=== PATIENT | male | born 1950 | race Caucasian/White ===

== ENCOUNTER 2017-09-20 11:38 | Observation (INO) | payer MEDICARE, OTHER ==
[~2017-09-20] VITALS: Ht 188 cm; Wt 140.6 kg
[2017-09-20] MEDS ORDERED: ASPirin 81 mg TAB PO ONE (12:00)
[2017-09-20 12:31] LABS: Basophils # (auto) 0.1 uL; Basophils % (auto) 0.8 % (0.0-2.0); Eosinophils # (auto) 0.2 uL; Eosinophils % (auto) 3.5 % (0.0-7.0); Hematocrit 42.4 % (41.0-53.0); Hemoglobin 14.9 g/dL (13.5-17.5); Lymphocytes % (auto) 13.9 % (10.0-50.0); Mean Corpuscular Hemoglobin 31.8 pg (28.0-32.0); Mean Corpuscular Hgb Conc. 35.1 g/dL (32.0-36.0); Mean Corpuscular Volume 90.4 fL (80.0-100.0); Monocytes # (auto) 0.3 uL; Monocytes % (auto) 4.7 % (0.0-12.0); Neutrophils # (auto) 5.5 uL; Neutrophils % (auto) 77.1 % (37.0-80.0); Nucleated Red Blood Cells % 0.1 %; Platelet Count (auto) 211 10^3/uL (140-450); Red Blood Cells 4.69 10^6/uL (4.5-5.90); Red Cell Distribution Width 13.6 % (11.8-14.3); White Blood Cell 7.1 10^3/uL (4.4-10.8)
[2017-09-20 12:48] LABS: INR 0.98 (0.9-1.15); Partial Thromboplastin Time 24.7 sec (22.64-33.71); Prothrombin Time 10.7 sec (9.37-12.3)
[2017-09-20 12:56] LABS: Alanine Aminotransferase 39 U/L (16-61); Albumin 3.9 g/dL (3.4-5.0); Alkaline Phosphatase 81 U/L (45-117); Anion Gap 9 (5-15); Aspartate Aminotransferase 25 U/L (15-37); BUN/Creatinine Ratio 8.8; Bilirubin, Total 0.7 mg/dL (0.2-1.0); Blood Urea Nitrogen 8 mg/dL (7-18); Calcium 8.9 mg/dL (8.5-10.1); Carbon Dioxide 26 mmol/L (21-32); Chloride 99 mmol/L (98-107); GFR African American 108 mL/min; GFR Non-African American 89 mL/min; Glucose 221 mg/dL (74-106); Magnesium 2.3 mg/dL (1.6-2.6); Potassium 3.4 mmol/L (3.5-5.1); Sodium 134 mmol/L (136-145); Total Protein 7.6 g/dL (6.4-8.2)
[2017-09-20 15:40] VITALS: BP 131/87
== END 2017-09-20 16:34 | disposition left against medical advice (07) | DRG 311 ==
LOC: ER 11:38 → OVERFLOW 11:57 → ER 16:34
PROVIDERS: ADMIT Family Medicine; ATTEND Family Medicine
DX: I20.0 Unstable angina (principal); E11.9 Type 2 diabetes mellitus without complications; I10 Essential (primary) hypertension; Z82.49 Family history of ischemic heart disease and other diseases of the circulatory system; E78.5 Hyperlipidemia, unspecified
CPT/HCPCS: 36415; 71045; 80053; 83735; 84443; 84484; 85025; 85379; 85610; 85730; 93005; 99285; G0378

== ENCOUNTER 2024-03-20 04:31 | Inpatient (IN) | payer MEDICARE, OTHER ==
[~2024-03-20] VITALS: Ht 182.9 cm; Wt 106.7 kg
[2024-03-20] VITALS (35 sets, daily range): BP systolic 84–139; BP diastolic 52–105; PULSE 88–130; RESP 19–31; TEMP 97.6–98.3; O2SAT 92–99
[2024-03-20] MEDS: ALBUTEROL SULF 2.5 MG/0.5ML(0.5%) NEB SOLN NEB ONE ×2 (04:56→14:31)
[2024-03-20] MEDS: IPRATROPIUM BROM 0.5 MG/2.5ML INH SOL NEB ONE (04:56)
[2024-03-20] MEDS: methylPREDNISolone SOD SUCC 125 MG/2 ML VL IV ONE (05:03)
[2024-03-20] MEDS: PIPERACILLIN-TAZOB 3.375GM 100 ML IV ONE (05:04)
[2024-03-20] MEDS: MAGNESIUM SULFATE 1GM/100ML 100 ML IV ONE (05:14)
[2024-03-20] MEDS: AZITHROMYCIN 500MG/ 250ML 250 ML IV ONE (05:56)
[2024-03-20 05:58] LABS: Base Excess -2.2 mmol/L (-2.0-3.0)
[2024-03-20 06:36] LABS: Hematocrit 38.7 % (41.0-53.0); Hemoglobin 13.4 g/dL (13.5-17.5); Mean Corpuscular Hemoglobin 33.2 pg (28.0-32.0); Mean Corpuscular Hgb Conc. 34.7 g/dL (32.0-36.0); Mean Corpuscular Volume 95.5 fL (80.0-100.0); Platelet Count (auto) 179 10^3/uL (140-450); Red Blood Cells 4.05 10^6/uL (4.5-5.90); Red Cell Distribution Width 14.4 % (11.8-14.3); White Blood Cell 6.3 10^3/uL (4.4-10.8)
[2024-03-20 06:47] LABS: Basophils % (manual) 0 (0.0-2.0); Blast Cells 0; Chloride 93 mmol/L (98-107); Eosinophils % (manual) 0 (0-7); Myelocytes % 0; Potassium 4.2 mmol/L (3.5-5.1); Promyelocytes % 0; Reactive Lymphocytes 0; Sodium 129 mmol/L (136-145)
[2024-03-20 06:48] LABS: Anion Gap 9 (5-15); Calcium 9.1 mg/dL (8.7-10.4); Carbon Dioxide 27 mmol/L (20-31)
[2024-03-20 06:53] LABS: BUN/Creatinine Ratio 27.4 (10.0-20.0); Blood Urea Nitrogen 29 mg/dL (9-23); Glucose 347 mg/dL (74-106)
[2024-03-20 07:29] LABS: Band Neutrophils % (manual) 43; Lymphocytes % (manual) 5 (10.0-50.0); Metamyelocytes % 1; Monocytes % (manual) 2 (0-12); Platelet Estimate Adequate
[2024-03-20] MEDS: NOREPINEPHRINE 8 MG/250ML KIT 250 ML IV SCH ×2 (10:45→11:00)
[2024-03-20] MEDS ORDERED: SODIUM CHLORIDE 0.9% 1,000 ML IV SCH (11:00)
[2024-03-20] MEDS ORDERED: DEXTROSE (50%) 50ML SYRG IV PRN ×2 (11:00→11:15)
[2024-03-20] MEDS ORDERED: GABA-1251 PO (11:08)
[2024-03-20] MEDS ORDERED: IPRATROPIUM BROM 0.5 MG/2.5ML INH SOL NEB PRN (11:15)
[2024-03-20] MEDS ORDERED: ALBUTEROL SULF 2.5 MG/0.5ML(0.5%) NEB SOLN NEB PRN ×2 (11:15→14:45)
[2024-03-20] MEDS ORDERED: ACCU-CHEK COMFORT CURVE STRIP VI SCH (11:30)
[2024-03-20] MEDS: PANTOPRAZOLE 40 MG/10 ML VIAL INJ IV ONE (11:30)
[2024-03-20] MEDS ORDERED: InsuLIN REG 1unit/0.01ml Soln (100units/ml) SC SCH (11:30)
[2024-03-20 11:34] LABS: Triglycerides 62 mg/dL (< 150)
[2024-03-20 11:35] LABS: LDL Cholesterol 16 mg/dL (< 100)
[2024-03-20 11:36] LABS: Cholesterol 97 mg/dL (< 200); HDL Cholesterol 61 mg/dL (40-59)
[2024-03-20] MEDS ORDERED: IPRATROPIUM BROM 0.5 MG/2.5ML INH SOL NEB SCH (12:00)
[2024-03-20] MEDS ORDERED: ALBUTEROL SULF 2.5 MG/0.5ML(0.5%) NEB SOLN NEB SCH (12:00)
[2024-03-20] MEDS: IOHEXOL 350 MG/ML 100ML IJ ONE (12:36)
[2024-03-20 13:32] LABS: Urine Bacteria None Seen /hpf (None Seen)
[2024-03-20 13:40] LABS: Urine Blood Negative /uL (Negative); Urine Budding Yeast OCCASIONAL /hpf (None Seen); Urine Clarity Turbid (Clear); Urine Color Yellow (Yellow); Urine Mucus FEW (None Seen); Urine Protein, UAD 1+ (Negative); Urine Specific Gravity 1.042 (1.001-1.035); Urine Urobilinogen 2 mg/dL (Negative); Urine WBC 7 /hpf (0 - 3); Urine pH 5.5 (5.0-9.0)
[2024-03-20] MEDS: SODIUM CHLORIDE 0.9% 1,000 ML IV SCH (13:51)
[2024-03-20 14:32] LABS: COVID19 ANTIGEN SOFIA FIA NEGATIVE (NEGATIVE); Rapid Influenza A Negative (Negative); Rapid Influenza B Negative (Negative)
[2024-03-20 17:05] LABS: Base Excess -1.5 mmol/L (-2.0-3.0)
[2024-03-20] MEDS: InsuLIN REG 1unit/0.01ml Soln (100units/ml) SC SCH (17:11)
[2024-03-20] MEDS: ACCU-CHEK COMFORT CURVE STRIP VI SCH (17:11)
[2024-03-20] MEDS: IPRATROPIUM BROM 0.5 MG/2.5ML INH SOL NEB SCH (18:37)
[2024-03-20] MEDS: ALBUTEROL SULF 2.5 MG/0.5ML(0.5%) NEB SOLN NEB SCH (18:38)
[2024-03-20] MEDS: methylPREDNISolone SOD SUCC 125 MG/2 ML VL IV SCH (22:09)
[2024-03-21] VITALS (116 sets, daily range): BP systolic 100–166; BP diastolic 57–123; PULSE 81–119; RESP 8–26; TEMP 97.5–99; O2SAT 92–99
[2024-03-21 04:47] LABS: Basophils # (auto) 0 10 ^3/uL (0-0.2); Basophils % (auto) 0.4 % (0.0-2.0); Eosinophils # (auto) 0 10 ^3/uL (0-0.8); Hemoglobin 11.7 g/dL (13.5-17.5); Lymphocytes # (auto) 0.1 10 ^3/uL (0.4-5.4); Lymphocytes % (auto) 0.9 % (10.0-50.0); Mean Corpuscular Hemoglobin 33.5 pg (28.0-32.0); Mean Corpuscular Hgb Conc. 35.5 g/dL (32.0-36.0); Mean Corpuscular Volume 94.5 fL (80.0-100.0); Monocytes # (auto) 0.1 10 ^3/uL (0-1.3); Monocytes % (auto) 1.3 % (0.0-12.0); Neutrophils # (auto) 6.7 10 ^3/uL (1.6-8.6); Neutrophils % (auto) 97.4 % (37.0-80.0); Platelet Count (auto) 135 10^3/uL (140-450); Red Blood Cells 3.49 10^6/uL (4.5-5.90); Red Cell Distribution Width 15.1 % (11.8-14.3); White Blood Cell 6.8 10^3/uL (4.4-10.8)
[2024-03-21 04:59] LABS: Alanine Aminotransferase 53 U/L (7-40); Albumin 3.4 g/dL (3.2-4.8); Alkaline Phosphatase 61 U/L (46-116); Anion Gap 6 (5-15); Aspartate Aminotransferase 39 U/L (13-40); BUN/Creatinine Ratio 45.5 (10.0-20.0); Blood Urea Nitrogen 35 mg/dL (9-23); Calcium 9.6 mg/dL (8.7-10.4); Carbon Dioxide 28 mmol/L (20-31); Chloride 98 mmol/L (98-107); Potassium 4.1 mmol/L (3.5-5.1); Sodium 132 mmol/L (136-145)
[2024-03-21 05:00] LABS: Bilirubin, Total 0.8 mg/dL (0.2-1.0); Total Protein 5.4 g/dL (5.7-8.2)
[2024-03-21 05:05] LABS: Glucose 159 mg/dL (74-106)
[2024-03-21] MEDS: PANTOPRAZOLE 40 MG/10 ML VIAL INJ IV SCH (09:52)
[2024-03-21] MEDS: ENOXAPARIN SOD 40 MG/0.4 ML SYRINGE SC SCH (09:54)
[2024-03-21] MEDS ORDERED: ENOXAPARIN SOD 40 MG/0.4 ML SYRINGE SC SCH (10:00)
[2024-03-21] MEDS ORDERED: VANCOMYCIN PER PHARMACY 0 MG IV SCH (10:45)
[2024-03-21] MEDS ORDERED: ARTISOL13 EACHEYE (13:34)
[2024-03-21] MEDS ORDERED: RIS1T PO (13:34)
[2024-03-21] MEDS ORDERED: RISP2TAB62 PO (13:34)
[2024-03-21] MEDS ORDERED: DICL0.1S20 OP (13:34)
[2024-03-21] MEDS ORDERED: CARB0.5D8 LEFTEYE (13:34)
[2024-03-21] MEDS ORDERED: METF-370 PO (13:34)
[2024-03-21] MEDS ORDERED: FAMO20TA10 GT (13:34)
[2024-03-21] MEDS ORDERED: AMLO1TAB22 PO (13:34)
[2024-03-21] MEDS ORDERED: [UNRECOGNIZED DRUG - CODE] OR (13:34)
[2024-03-21] MEDS ORDERED: ATOR40TA52 PEG (13:34)
[2024-03-21] MEDS ORDERED: LEVO75TA6 PO (13:34)
[2024-03-21] MEDS ORDERED: TRAZ-227 PO (13:34)
[2024-03-21] MEDS: VANCOMYCIN 1GM/200ML PREMIX 250 ML IV SCH (14:05)
[2024-03-21] MEDS ORDERED: Glucerna 1.2 Cal 1Liter BOTTLE GT SCH (16:15)
[2024-03-21] MEDS: SODIUM CHLORIDE 0.9% 1,000 ML IV SCH (16:38)
[2024-03-21] MEDS: PIPERACILLIN-TAZOB 3.375GM 100 ML IV SCH (16:42)
[2024-03-22] VITALS (95 sets, daily range): BP systolic 107–166; BP diastolic 60–84; PULSE 21–139; RESP 15–31; TEMP 98.3–99; O2SAT 90–100
[2024-03-22] MEDS: traZODone HCL 50 MG TAB PO SCH (00:53)
[2024-03-22 04:26] LABS: Hematocrit 34.3 % (41.0-53.0); Hemoglobin 11.9 g/dL (13.5-17.5); Mean Corpuscular Hemoglobin 32.6 pg (28.0-32.0); Mean Corpuscular Hgb Conc. 34.7 g/dL (32.0-36.0); Mean Corpuscular Volume 93.9 fL (80.0-100.0); Platelet Count (auto) 107 10^3/uL (140-450); Red Blood Cells 3.65 10^6/uL (4.5-5.90); Red Cell Distribution Width 15.1 % (11.8-14.3); White Blood Cell 7.9 10^3/uL (4.4-10.8)
[2024-03-22 04:29] LABS: Basophils % (manual) 0 (0.0-2.0); Blast Cells 0; Eosinophils % (manual) 0 (0-7); Metamyelocytes % 0; Myelocytes % 0; Promyelocytes % 0; Reactive Lymphocytes 0
[2024-03-22 04:44] LABS: Alanine Aminotransferase 43 U/L (7-40); Albumin 3.2 g/dL (3.2-4.8); Alkaline Phosphatase 70 U/L (46-116); Anion Gap 6 (5-15); Aspartate Aminotransferase 37 U/L (13-40); BUN/Creatinine Ratio 42.9 (10.0-20.0); Bilirubin, Total 0.9 mg/dL (0.2-1.0); Calcium 9.7 mg/dL (8.7-10.4); Carbon Dioxide 26 mmol/L (20-31); Chloride 101 mmol/L (98-107); Glucose 176 mg/dL (74-106); Magnesium 2.3 mg/dL (1.6-2.6); Phosphorus 2.2 mg/dL (2.4-5.1); Potassium 3.9 mmol/L (3.5-5.1); Sodium 133 mmol/L (136-145); Total Protein 5.6 g/dL (5.7-8.2)
[2024-03-22 04:56] LABS: Blood Urea Nitrogen 24 mg/dL (9-23)
[2024-03-22 05:24] LABS: Band Neutrophils % (manual) 34; Lymphocytes % (manual) 2 (10.0-50.0); Monocytes % (manual) 12 (0-12)
[2024-03-22 05:25] LABS: Large Platelets FEW; Ovalocytes FEW; Platelet Estimate Decrea
[2024-03-22] MEDS: VANCOMYCIN 1.5GM/300ML 300 ML IV SCH (13:09)
[2024-03-22] MEDS: SENNA 8.6 MG TAB PO ONE (18:10)
[2024-03-22] MEDS: LACTULOSE 20Gm/30ML SOLN PO ONE (18:10)
[2024-03-22] MEDS: NYSTATIN TOPICAL POWDER 15GM TOP SCH (22:18)
[2024-03-23] VITALS (118 sets, daily range): BP systolic 101–179; BP diastolic 50–129; PULSE 88–133; RESP 19–38; TEMP 97.9–100.2; O2SAT 89–100
[2024-03-23] MEDS: Glucerna 1.2 Cal 1Liter BOTTLE GT SCH (00:53)
[2024-03-23 04:13] LABS: Basophils # (auto) 0 10 ^3/uL (0-0.2); Basophils % (auto) 0.3 % (0.0-2.0); Eosinophils # (auto) 0 10 ^3/uL (0-0.8); Eosinophils % (auto) 0.2 % (0.0-7.0); Hemoglobin 12.3 g/dL (13.5-17.5); Lymphocytes # (auto) 0.1 10 ^3/uL (0.4-5.4); Lymphocytes % (auto) 0.9 % (10.0-50.0); Mean Corpuscular Hemoglobin 33.2 pg (28.0-32.0); Mean Corpuscular Hgb Conc. 35.1 g/dL (32.0-36.0); Mean Corpuscular Volume 94.7 fL (80.0-100.0); Monocytes # (auto) 0 10 ^3/uL (0-1.3); Monocytes % (auto) 0.6 % (0.0-12.0); Neutrophils # (auto) 6.4 10 ^3/uL (1.6-8.6); Nucleated Red Blood Cells % 0.1 %; Platelet Count (auto) 119 10^3/uL (140-450); Red Blood Cells 3.69 10^6/uL (4.5-5.90); Red Cell Distribution Width 15.3 % (11.8-14.3); White Blood Cell 6.5 10^3/uL (4.4-10.8)
[2024-03-23 04:30] LABS: Alanine Aminotransferase 43 U/L (7-40); Albumin 3.5 g/dL (3.2-4.8); Alkaline Phosphatase 78 U/L (46-116); Anion Gap 10 (5-15); Aspartate Aminotransferase 36 U/L (13-40); Blood Urea Nitrogen 27 mg/dL (9-23); Calcium 10.6 mg/dL (8.7-10.4); Carbon Dioxide 25 mmol/L (20-31); Chloride 103 mmol/L (98-107); Glucose 180 mg/dL (74-106); Magnesium 2.1 mg/dL (1.6-2.6); Potassium 3.5 mmol/L (3.5-5.1); Sodium 138 mmol/L (136-145)
[2024-03-23 04:31] LABS: Bilirubin, Total 0.8 mg/dL (0.2-1.0); Total Protein 5.8 g/dL (5.7-8.2)
[2024-03-23] MEDS: POTASSIUM CHL 20MEQ/100ML 100 ML IV ONE (05:44)
[2024-03-23] MEDS: LACTULOSE 20Gm/30ML SOLN PO SCH (09:29)
[2024-03-23] MEDS: METOPROLOL TARTRATE 25 MG TAB PO SCH (10:03)
[2024-03-23] MEDS: MICAFUNGIN SODIUM 100 MG in SODIUM CHL 0.9% 100 ML IV ONE (13:29)
[2024-03-23] MEDS: LABETALOL HCL 20 MG/4 ML VL IV PRN (14:53)
[2024-03-23] MEDS: ENOXAPARIN SOD 100 MG/1 ML SYRINGE SC SCH (23:31)
[2024-03-24] VITALS (95 sets, daily range): BP systolic 104–186; BP diastolic 50–98; PULSE 93–122; RESP 18–39; TEMP 98.4–100.6; O2SAT 90–100
[2024-03-24 05:18] LABS: Hemoglobin 12.8 g/dL (13.5-17.5); Mean Corpuscular Hemoglobin 32.9 pg (28.0-32.0); Mean Corpuscular Hgb Conc. 34.6 g/dL (32.0-36.0); Mean Corpuscular Volume 95.1 fL (80.0-100.0); Platelet Count (auto) 127 10^3/uL (140-450); Red Blood Cells 3.89 10^6/uL (4.5-5.90); Red Cell Distribution Width 15.6 % (11.8-14.3); White Blood Cell 6.5 10^3/uL (4.4-10.8)
[2024-03-24 05:31] LABS: Alanine Aminotransferase 35 U/L (7-40); Albumin 3.6 g/dL (3.2-4.8); Alkaline Phosphatase 77 U/L (46-116); Anion Gap 11 (5-15); Aspartate Aminotransferase 23 U/L (13-40); Bilirubin, Total 0.8 mg/dL (0.2-1.0); Blood Urea Nitrogen 28 mg/dL (9-23); Calcium 10.3 mg/dL (8.7-10.4); Carbon Dioxide 25 mmol/L (20-31); Chloride 107 mmol/L (98-107); Glucose 176 mg/dL (74-106); Sodium 143 mmol/L (136-145); Total Protein 5.9 g/dL (5.7-8.2)
[2024-03-24 05:38] LABS: Basophils % (manual) 0 (0.0-2.0); Blast Cells 0; Eosinophils % (manual) 0 (0-7); Metamyelocytes % 0; Myelocytes % 0; Promyelocytes % 0; Reactive Lymphocytes 0
[2024-03-24 06:10] LABS: Lactic Acid w/Reflex 2.2 mmol/L (0.4-2.0)
[2024-03-24 06:21] LABS: Band Neutrophils % (manual) 23; Lymphocytes % (manual) 3 (10.0-50.0); Monocytes % (manual) 3 (0-12); Platelet Estimate Decreased; Smudge Cells 1 /100 WBC
[2024-03-24 06:48] LABS: Base Excess -0.3 mmol/L (-2.0-3.0)
[2024-03-24] MEDS: POTASSIUM CHL 20MEQ/100ML 100 ML IV SCH (07:26)
[2024-03-24] MEDS: MICAFUNGIN SODIUM 100 MG in SODIUM CHL 0.9% 100 ML IV SCH (10:20)
[2024-03-24] MEDS ORDERED: LEVALBUTEROL HCL 1.25 MG/3 ML NEB NEB SCH ×2 (12:00→14:00)
[2024-03-24] MEDS: VORICONAZOLE IV SCH (15:17)
[2024-03-24] MEDS: D5W 5% IV SCH (15:17)
[2024-03-24] MEDS: VANCOMYCIN 1GM/200ML PREMIX IV SCH (15:25)
[2024-03-24] MEDS: MEROPENEM 1GM IVPB 50 ML IV ONE (15:42)
[2024-03-24] MEDS: LEVALBUTEROL HCL 1.25 MG/3 ML NEB NEB SCH (18:18)
[2024-03-24] MEDS: MEROPENEM 1GM IVPB 50 ML IV SCH (22:08)
[2024-03-24] MEDS: ACETAMINOPHEN 325 MG TAB PO PRN (22:37)
[2024-03-25] VITALS (57 sets, daily range): BP systolic 27–180; BP diastolic 10–99; PULSE 82–118; RESP 11–32; TEMP 97.4–101.1; O2SAT 68–100
[2024-03-25 05:13] LABS: Basophils # (auto) 0 10 ^3/uL (0-0.2); Basophils % (auto) 0.3 % (0.0-2.0); Eosinophils # (auto) 0 10 ^3/uL (0-0.8); Eosinophils % (auto) 0.1 % (0.0-7.0); Hematocrit 35.9 % (41.0-53.0); Hemoglobin 12.4 g/dL (13.5-17.5); Lymphocytes # (auto) 0.1 10 ^3/uL (0.4-5.4); Lymphocytes % (auto) 0.9 % (10.0-50.0); Mean Corpuscular Hgb Conc. 34.4 g/dL (32.0-36.0); Monocytes # (auto) 0.1 10 ^3/uL (0-1.3); Monocytes % (auto) 0.7 % (0.0-12.0); Neutrophils # (auto) 8.6 10 ^3/uL (1.6-8.6); Platelet Count (auto) 116 10^3/uL (140-450); Red Blood Cells 3.74 10^6/uL (4.5-5.90); Red Cell Distribution Width 16.5 % (11.8-14.3); White Blood Cell 8.7 10^3/uL (4.4-10.8)
[2024-03-25 05:35] LABS: Alanine Aminotransferase 25 U/L (7-40); Albumin 3.2 g/dL (3.2-4.8); Alkaline Phosphatase 77 U/L (46-116); Anion Gap 9 (5-15); Aspartate Aminotransferase 16 U/L (13-40); BUN/Creatinine Ratio 44.2 (10.0-20.0); Bilirubin, Total 0.4 mg/dL (0.2-1.0); Blood Urea Nitrogen 34 mg/dL (9-23); Calcium 9.8 mg/dL (8.7-10.4); Carbon Dioxide 27 mmol/L (20-31); Chloride 109 mmol/L (98-107); GFR African American 128 mL/min; GFR Non-African American 106 mL/min; Glucose 238 mg/dL (74-106); Magnesium 2.1 mg/dL (1.6-2.6); Phosphorus 3.1 mg/dL (2.4-5.1); Potassium 3.2 mmol/L (3.5-5.1); Sodium 145 mmol/L (136-145); Total Protein 5.5 g/dL (5.7-8.2)
[2024-03-25] MEDS: POTASSIUM CHL 20MEQ/100ML 100 ML IV SCH (08:56)
[2024-03-25 09:05] LABS: Lactic Acid w/Reflex 2.2 mmol/L (0.4-2.0)
[2024-03-25] MEDS: LOSARTAN POTASSIUM 50 MG TAB PO SCH (09:38)
[2024-03-25 11:28] LABS: INR 1.12 (0.9-1.15); Partial Thromboplastin Time 34.2 SEC (24.5-34.5); Prothrombin Time 11.8 sec (9.3-11.8)
[2024-03-25] MEDS ORDERED: ARTIFICIAL TEARS 15ml EACHEYE PRN (13:15)
[2024-03-25] MEDS: amLODIPine BESYLATE 5 MG TAB PO ONE (13:16)
[2024-03-25] MEDS: LORazepam 0.5 MG TAB GT PRN (13:16)
[2024-03-25] MEDS: VORICONAZOLE INJ 300 MG in D5W 5% 250 ML IV SCH (15:00)
[2024-03-25] MEDS: IOHEXOL 300 MG/ML 100ML BOTTLE IJ ONE (15:34)
[2024-03-25] MEDS: ARTIFICIAL TEARS 15ml EACHEYE SCH (18:00)
[2024-03-25] MEDS: ETOMIDATE (2MG/ML) 20ML VIAL IV ONE ×2 (18:20→19:23)
[2024-03-25] MEDS: fentaNYL Drip 2500mCg/250mlNS 250 ML IV ONE (18:20)
[2024-03-25] MEDS: SUCCINYLCHOLINE CHLORIDE 20 MG/ML 10ML VIAL IV ONE (18:21)
[2024-03-25] MEDS: ROCURONIUM 10MG/ML 10ML VIAL IV ONE ×2 (18:21→19:24)
[2024-03-25] MEDS: NOREPINEPHRINE 8 MG/250ML KIT 250 ML IV ONE (18:22)
[2024-03-25] MEDS: PROPOFOL 100 ML IV ONE (18:23)
[2024-03-25] MEDS: NOREPINEPHRINE 8 MG/250ML KIT 250 ML IV SCH (18:30)
[2024-03-25] MEDS: VASOPRESSIN 20 UNIT/ML ONE ×2 (18:39→18:41)
[2024-03-25] MEDS: VASOPRESSIN 20 UNITS in SODIUM CHL 0.9% 99 ML IV SCH ×2 (18:45→19:15)
[2024-03-25] MEDS: PROPOFOL 100 ML IV SCH (19:29)
[2024-03-25] MEDS: fentaNYL Drip 2500mCg/250mlNS 250 ML IV SCH (19:29)
[2024-03-25] MEDS: FUROSEMIDE 20 MG/2 ML VIAL IV ONE (21:05)
[2024-03-25 21:59] LABS: Base Excess -6.2 mmol/L (-2.0-3.0)
[2024-03-26] VITALS (118 sets, daily range): BP systolic 81–143; BP diastolic 43–100; PULSE 90–118; RESP 9–30; TEMP 99.1–100.4; O2SAT 77–100
[2024-03-26 05:11] LABS: Hematocrit 37.5 % (41.0-53.0); Hemoglobin 12.4 g/dL (13.5-17.5); Mean Corpuscular Hemoglobin 33.1 pg (28.0-32.0); Mean Corpuscular Volume 100.2 fL (80.0-100.0); Platelet Count (auto) 149 10^3/uL (140-450); Red Blood Cells 3.74 10^6/uL (4.5-5.90); Red Cell Distribution Width 17.3 % (11.8-14.3); White Blood Cell 15.8 10^3/uL (4.4-10.8)
[2024-03-26 05:15] LABS: Basophils % (manual) 0 (0.0-2.0); Blast Cells 0; Metamyelocytes % 0; Myelocytes % 0; Promyelocytes % 0; Reactive Lymphocytes 0
[2024-03-26 05:29] LABS: Alanine Aminotransferase 21 U/L (7-40); Alkaline Phosphatase 78 U/L (46-116); Anion Gap 10 (5-15); Aspartate Aminotransferase 16 U/L (13-40); BUN/Creatinine Ratio 29.5 (10.0-20.0); Blood Urea Nitrogen 39 mg/dL (9-23); Calcium 9.8 mg/dL (8.7-10.4); Carbon Dioxide 27 mmol/L (20-31); Chloride 111 mmol/L (98-107); Glucose 150 mg/dL (74-106); Magnesium 2.2 mg/dL (1.6-2.6); Phosphorus 4.9 mg/dL (2.4-5.1); Potassium 4.1 mmol/L (3.5-5.1); Sodium 148 mmol/L (136-145)
[2024-03-26 05:30] LABS: Bilirubin, Total 0.2 mg/dL (0.2-1.0); Total Protein 5.3 g/dL (5.7-8.2)
[2024-03-26 06:14] LABS: Band Neutrophils % (manual) 22; Eosinophils % (manual) 1 (0-7); Lymphocytes % (manual) 4 (10.0-50.0); Monocytes % (manual) 3 (0-12); Platelet Estimate Adequate
[2024-03-26] MEDS: amLODIPine BESYLATE 5 MG TAB PO SCH (07:45)
[2024-03-26 07:46] LABS: Base Excess -5.7 mmol/L (-2.0-3.0)
[2024-03-26] MEDS: SODIUM CHLORIDE 0.9% 1,000 ML IV SCH (15:26)
[2024-03-26] MEDS: FLUCONAZOLE 200MG/100ML 100 ML IV SCH (18:56)
[2024-03-26] MEDS: MICAFUNGIN SODIUM 100 MG in SODIUM CHL 0.9% 100 ML IV SCH (20:13)
[2024-03-27] VITALS (109 sets, daily range): BP systolic 87–128; BP diastolic 43–69; PULSE 83–98; RESP 13–31; TEMP 99.5–100; O2SAT 92–100
[2024-03-27 05:25] LABS: Hematocrit 32.7 % (41.0-53.0); Hemoglobin 10.8 g/dL (13.5-17.5); Mean Corpuscular Hemoglobin 32.8 pg (28.0-32.0); Mean Corpuscular Hgb Conc. 33.1 g/dL (32.0-36.0); Mean Corpuscular Volume 98.9 fL (80.0-100.0); Platelet Count (auto) 127 10^3/uL (140-450); Red Cell Distribution Width 17.5 % (11.8-14.3); White Blood Cell 12.1 10^3/uL (4.4-10.8)
[2024-03-27 05:30] LABS: Basophils % (manual) 0 (0.0-2.0); Blast Cells 0; Eosinophils % (manual) 0 (0-7); Metamyelocytes % 0; Myelocytes % 0; Promyelocytes % 0; Reactive Lymphocytes 0
[2024-03-27 05:46] LABS: Alanine Aminotransferase 14 U/L (7-40); Alkaline Phosphatase 86 U/L (46-116); Anion Gap 8 (5-15); Aspartate Aminotransferase 13 U/L (13-40); Blood Urea Nitrogen 51 mg/dL (9-23); Carbon Dioxide 24 mmol/L (20-31); Chloride 114 mmol/L (98-107); Glucose 176 mg/dL (74-106); Magnesium 2.2 mg/dL (1.6-2.6); Potassium 4.2 mmol/L (3.5-5.1); Sodium 146 mmol/L (136-145)
[2024-03-27 05:47] LABS: Albumin 2.7 g/dL (3.2-4.8); Bilirubin, Total 0.2 mg/dL (0.2-1.0); Total Protein 5.1 g/dL (5.7-8.2)
[2024-03-27 06:19] LABS: Band Neutrophils % (manual) 8; Lymphocytes % (manual) 4 (10.0-50.0); Monocytes % (manual) 1 (0-12); Platelet Estimate Decreased
[2024-03-27] MEDS: MINERAL OIL OP SCH (07:24)
[2024-03-27] MEDS: [UNRECOGNIZED DRUG - OTHER] OP SCH (07:24)
[2024-03-27] MEDS: PETROLATUM OP SCH (07:24)
[2024-03-27] MEDS: SODIUM CHLORIDE 0.9% 500 ML IV ONE (10:15)
[2024-03-27] MEDS: FREE WATER GT SCH (10:15)
[2024-03-27] MEDS: MEROPENEM 1GM IVPB 50 ML IV SCH (16:38)
[2024-03-27] MEDS: FUROSEMIDE INJECTION 100 MG in D5W 5% 100 ML IV SCH (21:15)
[2024-03-28] VITALS (111 sets, daily range): BP systolic 91–137; BP diastolic 41–75; PULSE 84–110; RESP 18–26; TEMP 98.1–100.4; O2SAT 91–98
[2024-03-28 06:40] LABS: Basophils # (auto) 0 10 ^3/uL (0-0.2); Basophils % (auto) 0.3 % (0.0-2.0); Eosinophils # (auto) 0 10 ^3/uL (0-0.8); Eosinophils % (auto) 0.4 % (0.0-7.0); Hematocrit 31.6 % (41.0-53.0); Hemoglobin 10.6 g/dL (13.5-17.5); Lymphocytes # (auto) 0.1 10 ^3/uL (0.4-5.4); Lymphocytes % (auto) 1.4 % (10.0-50.0); Mean Corpuscular Hgb Conc. 33.4 g/dL (32.0-36.0); Mean Corpuscular Volume 98.7 fL (80.0-100.0); Monocytes # (auto) 0.1 10 ^3/uL (0-1.3); Neutrophils # (auto) 6.6 10 ^3/uL (1.6-8.6); Neutrophils % (auto) 96.9 % (37.0-80.0); Nucleated Red Blood Cells % 0.1 %; Platelet Count (auto) 106 10^3/uL (140-450); Red Blood Cells 3.21 10^6/uL (4.5-5.90); Red Cell Distribution Width 17.6 % (11.8-14.3); White Blood Cell 6.8 10^3/uL (4.4-10.8)
[2024-03-28 06:53] LABS: Alanine Aminotransferase 12 U/L (7-40); Albumin 2.6 g/dL (3.2-4.8); Alkaline Phosphatase 101 U/L (46-116); Anion Gap 7 (5-15); Aspartate Aminotransferase 18 U/L (13-40); BUN/Creatinine Ratio 36.9 (10.0-20.0); Blood Urea Nitrogen 55 mg/dL (9-23); Calcium 8.9 mg/dL (8.7-10.4); Carbon Dioxide 24 mmol/L (20-31); Chloride 115 mmol/L (98-107); Glucose 151 mg/dL (74-106); Magnesium 2.5 mg/dL (1.6-2.6); Potassium 4.2 mmol/L (3.5-5.1); Sodium 146 mmol/L (136-145)
[2024-03-28 06:54] LABS: Bilirubin, Total < 0.2 mg/dL (0.2-1.0); Total Protein 5.1 g/dL (5.7-8.2)
[2024-03-28 08:41] LABS: Base Excess -4.3 mmol/L (-2.0-3.0)
[2024-03-28] MEDS: SOD CHL 0.45% 1,000 ML IV SCH (11:30)
[2024-03-28] MEDS: MEROPENEM 1GM IVPB 50 ML IV SCH (12:29)
[2024-03-28 13:13] LABS: Protein, Urine 46.7 mg/dL (1-14)
[2024-03-28 13:16] LABS: Creatinine, Urine 19.44 mg/dL (30.0-125.0)
[2024-03-28] MEDS ORDERED: VANCOMYCIN PER PHARMACY 0 MG IV SCH (15:30)
[2024-03-28] MEDS: MIDAZOLAM DRIP 50 mg/50mL 50 ML IV SCH (16:26)
[2024-03-28] MEDS ORDERED: VANCOMYCIN 750mg/150ml 150 ML IV SCH (22:00)
[2024-03-29] VITALS (100 sets, daily range): BP systolic 92–134; BP diastolic 41–85; PULSE 81–101; RESP 13–26; TEMP 98.2–99.9; O2SAT 3–97
[2024-03-29 05:02] LABS: Hematocrit 30.1 % (41.0-53.0); Hemoglobin 10.1 g/dL (13.5-17.5); Mean Corpuscular Hgb Conc. 33.6 g/dL (32.0-36.0); Mean Corpuscular Volume 98.1 fL (80.0-100.0); Platelet Count (auto) 102 10^3/uL (140-450); Red Blood Cells 3.07 10^6/uL (4.5-5.90); Red Cell Distribution Width 17.7 % (11.8-14.3); White Blood Cell 4.9 10^3/uL (4.4-10.8)
[2024-03-29 05:15] LABS: Basophils % (manual) 0 (0.0-2.0); Blast Cells 0; Eosinophils % (manual) 0 (0-7); Metamyelocytes % 0; Promyelocytes % 0; Reactive Lymphocytes 0
[2024-03-29 05:16] LABS: Alanine Aminotransferase 10 U/L (7-40); Albumin 2.5 g/dL (3.2-4.8); Alkaline Phosphatase 84 U/L (46-116); Anion Gap 8 (5-15); Aspartate Aminotransferase 12 U/L (13-40); Blood Urea Nitrogen 59 mg/dL (9-23); Calcium 8.8 mg/dL (8.7-10.4); Carbon Dioxide 25 mmol/L (20-31); Chloride 112 mmol/L (98-107); Glucose 180 mg/dL (74-106); Potassium 4.1 mmol/L (3.5-5.1); Sodium 145 mmol/L (136-145)
[2024-03-29 05:17] LABS: Bilirubin, Total 0.2 mg/dL (0.2-1.0); Total Protein 5.2 g/dL (5.7-8.2)
[2024-03-29 06:52] LABS: Band Neutrophils % (manual) 17; Lymphocytes % (manual) 4 (10.0-50.0); Monocytes % (manual) 2 (0-12); Myelocytes % 1
[2024-03-29 06:54] LABS: Anisocytosis Slight; Platelet Estimate Decreased
[2024-03-29 06:56] LABS: Large Platelets FEW
[2024-03-29 07:40] LABS: Base Excess -7.2 mmol/L (-2.0-3.0)
[2024-03-29 11:16] LABS: Base Excess -5.7 mmol/L (-2.0-3.0)
[2024-03-29] MEDS: SOD CHL 0.45% 1,000 ML IV SCH (13:59)
[2024-03-29] MEDS ORDERED: BACTRIM 5MG/KG Q8HR PER RX 10 ML IV SCH (15:30)
[2024-03-29] MEDS ORDERED: levoFLOXacin 750MG 150 ML IV SCH (18:00)
[2024-03-29] MEDS: LACTULOSE 20Gm/30ML SOLN GT SCH (18:05)
[2024-03-29] MEDS: SULFAMETH-TRIMETH 80/16MG-ML 25 ML in D5W 5% 500 ML IV SCH (18:06)
[2024-03-29] MEDS: MICAFUNGIN SODIUM 100 MG in SODIUM CHL 0.9% 100 ML IV SCH (20:23)
[2024-03-29] MEDS: levoFLOXacin 500MG 100 ML IV SCH (20:23)
[2024-03-29] MEDS: levoFLOXacin 250MG 50 ML IV SCH (21:48)
[2024-03-30] VITALS (106 sets, daily range): BP systolic 93–155; BP diastolic 41–97; PULSE 82–118; RESP 12–28; TEMP 98.4–99.5; O2SAT 75–96
[2024-03-30 03:56] LABS: Hematocrit 31.4 % (41.0-53.0); Hemoglobin 10.5 g/dL (13.5-17.5); Mean Corpuscular Hgb Conc. 33.3 g/dL (32.0-36.0); Mean Corpuscular Volume 98.9 fL (80.0-100.0); Platelet Count (auto) 115 10^3/uL (140-450); Red Blood Cells 3.17 10^6/uL (4.5-5.90); Red Cell Distribution Width 17.6 % (11.8-14.3); White Blood Cell 4.2 10^3/uL (4.4-10.8)
[2024-03-30 04:03] LABS: Basophils % (manual) 0 (0.0-2.0); Blast Cells 0; Eosinophils % (manual) 0 (0-7); Metamyelocytes % 0; Promyelocytes % 0; Reactive Lymphocytes 0
[2024-03-30 04:11] LABS: Anion Gap 8 (5-15); Carbon Dioxide 24 mmol/L (20-31); Chloride 113 mmol/L (98-107); Potassium 4.2 mmol/L (3.5-5.1); Sodium 145 mmol/L (136-145)
[2024-03-30 04:13] LABS: Calcium 8.6 mg/dL (8.7-10.4)
[2024-03-30 04:18] LABS: BUN/Creatinine Ratio 33.1 (10.0-20.0); Blood Urea Nitrogen 60 mg/dL (9-23); Glucose 116 mg/dL (74-106)
[2024-03-30 06:18] LABS: Base Excess -5.9 mmol/L (-2.0-3.0)
[2024-03-30 06:39] LABS: Anisocytosis Slight; Band Neutrophils % (manual) 17; Large Platelets FEW; Monocytes % (manual) 1 (0-12); Myelocytes % 2; Platelet Estimate Decreased
[2024-03-30 06:40] LABS: Lymphocytes % (manual) 3 (10.0-50.0)
[2024-03-30] MEDS ORDERED: SODIUM CHLORIDE 0.9% 1,000 ML IV SCH (08:00)
[2024-03-30] MEDS: SULFAMETH-TRIMETH 80/16MG-ML 25 ML in D5W 5% 500 ML IV SCH (08:08)
[2024-03-30] MEDS: SOD CHL 0.45% 1,000 ML IV SCH (08:08)
[2024-03-30] MEDS: ENOXAPARIN SOD 100 MG/1 ML SYRINGE SC SCH (11:06)
[2024-03-30] MEDS ORDERED: SODIUM BICARBONATE 650 MG TAB GT SCH (14:00)
[2024-03-30 14:07] LABS: Aspergillus flavus Negative (Neg:<1:1); Aspergillus fumigatus Negative (Neg:<1:1); Aspergillus niger Negative (Neg:<1:1)
[2024-03-30] MEDS: SODIUM BICARB 50mEq/50ml Vial 50 ML in SOD CHL 0.45% 1,000 ML IV SCH (17:00)
[2024-03-31] VITALS (109 sets, daily range): BP systolic 71–149; BP diastolic 39–75; PULSE 77–103; RESP 18–30; TEMP 97.9–99.1; O2SAT 91–97
[2024-03-31 04:49] LABS: Hematocrit 29.9 % (41.0-53.0); Hemoglobin 9.9 g/dL (13.5-17.5); Mean Corpuscular Hemoglobin 32.7 pg (28.0-32.0); Mean Corpuscular Hgb Conc. 33.2 g/dL (32.0-36.0); Mean Corpuscular Volume 98.6 fL (80.0-100.0); Platelet Count (auto) 129 10^3/uL (140-450); Red Blood Cells 3.04 10^6/uL (4.5-5.90); White Blood Cell 6.8 10^3/uL (4.4-10.8)
[2024-03-31 04:53] LABS: Basophils % (manual) 0 (0.0-2.0); Blast Cells 0; Eosinophils % (manual) 0 (0-7); Metamyelocytes % 0; Myelocytes % 0; Promyelocytes % 0; Reactive Lymphocytes 0
[2024-03-31 04:56] LABS: Chloride 110 mmol/L (98-107); Potassium 4.4 mmol/L (3.5-5.1); Sodium 142 mmol/L (136-145)
[2024-03-31 04:57] LABS: Anion Gap 7 (5-15); Calcium 8.6 mg/dL (8.7-10.4); Carbon Dioxide 25 mmol/L (20-31)
[2024-03-31 05:02] LABS: BUN/Creatinine Ratio 30.5 (10.0-20.0); Blood Urea Nitrogen 69 mg/dL (9-23); Glucose 139 mg/dL (74-106)
[2024-03-31 06:56] LABS: Base Excess -7.3 mmol/L (-2.0-3.0)
[2024-03-31 07:52] LABS: Band Neutrophils % (manual) 17; Lymphocytes % (manual) 3 (10.0-50.0); Monocytes % (manual) 2 (0-12); Platelet Estimate Decreased
[2024-03-31 08:45] LABS: Base Excess -6.7 mmol/L (-2.0-3.0)
[2024-03-31] MEDS: ENOXAPARIN SOD 60 MG/0.6 ML SYRINGE SC SCH (10:04)
[2024-03-31] MEDS: FUROSEMIDE 40 MG/4 ML VIAL IV SCH (11:14)
[2024-03-31] MEDS: METOCLOPRAMIDE HCL 5MG/ml INJ 2ml VIAL IV ONE (14:30)
[2024-03-31] MEDS: HEPARIN SODIUM (PORCINE) 5000 UNITS/ML 1ML VIAL SC SCH (21:44)
[2024-03-31] MEDS: MINOCYCLINE HCL 100 MG CAP PO SCH (21:47)
[2024-04-01] VITALS (117 sets, daily range): BP systolic 84–158; BP diastolic 20–83; PULSE 86–131; RESP 15–31; TEMP 98.8–100; O2SAT 84–97
[2024-04-01 04:59] LABS: Basophils # (auto) 0 10 ^3/uL (0-0.2); Basophils % (auto) 0.5 % (0.0-2.0); Eosinophils # (auto) 0 10 ^3/uL (0-0.8); Eosinophils % (auto) 0.1 % (0.0-7.0); Hematocrit 31.5 % (41.0-53.0); Hemoglobin 10.5 g/dL (13.5-17.5); Lymphocytes # (auto) 0.1 10 ^3/uL (0.4-5.4); Mean Corpuscular Hemoglobin 32.9 pg (28.0-32.0); Mean Corpuscular Hgb Conc. 33.5 g/dL (32.0-36.0); Mean Corpuscular Volume 98.2 fL (80.0-100.0); Monocytes # (auto) 0.1 10 ^3/uL (0-1.3); Monocytes % (auto) 0.8 % (0.0-12.0); Neutrophils # (auto) 6.1 10 ^3/uL (1.6-8.6); Neutrophils % (auto) 97.6 % (37.0-80.0); Nucleated Red Blood Cells % 0.1 %; Platelet Count (auto) 135 10^3/uL (140-450); Red Cell Distribution Width 17.8 % (11.8-14.3); White Blood Cell 6.2 10^3/uL (4.4-10.8)
[2024-04-01 05:13] LABS: Chloride 111 mmol/L (98-107); Potassium 4.3 mmol/L (3.5-5.1); Sodium 142 mmol/L (136-145)
[2024-04-01 05:14] LABS: Anion Gap 8 (5-15); Carbon Dioxide 23 mmol/L (20-31)
[2024-04-01 05:19] LABS: BUN/Creatinine Ratio 26.1 (10.0-20.0); Blood Urea Nitrogen 66 mg/dL (9-23); Glucose 149 mg/dL (74-106)
[2024-04-01 08:11] LABS: Base Excess -7.8 mmol/L (-2.0-3.0)
[2024-04-01] MEDS: ALBUMIN 25% 100 ML IV ONE (13:12)
[2024-04-01] MEDS: FUROSEMIDE 100 MG/10ML VIAL IV ONE (15:01)
[2024-04-01 15:28] LABS: Base Excess -6.4 mmol/L (-2.0-3.0)
[2024-04-01] MEDS: METOCLOPRAMIDE HCL 5MG/ml INJ 2ml VIAL IV ONE (21:54)
[2024-04-02] VITALS (113 sets, daily range): BP systolic 77–143; BP diastolic 11–78; PULSE 75–142; RESP 28–40; TEMP 98.2–99.9; O2SAT 89–97
[2024-04-02 04:21] LABS: Chloride 112 mmol/L (98-107); Sodium 144 mmol/L (136-145)
[2024-04-02 04:22] LABS: Anion Gap 9 (5-15); Carbon Dioxide 23 mmol/L (20-31)
[2024-04-02 04:24] LABS: Hematocrit 31.5 % (41.0-53.0); Hemoglobin 10.3 g/dL (13.5-17.5); Mean Corpuscular Hemoglobin 31.9 pg (28.0-32.0); Mean Corpuscular Hgb Conc. 32.8 g/dL (32.0-36.0); Mean Corpuscular Volume 97.2 fL (80.0-100.0); Platelet Count (auto) 139 10^3/uL (140-450); Red Blood Cells 3.24 10^6/uL (4.5-5.90); Red Cell Distribution Width 17.6 % (11.8-14.3); White Blood Cell 12.4 10^3/uL (4.4-10.8)
[2024-04-02 04:27] LABS: BUN/Creatinine Ratio 26.8 (10.0-20.0); Glucose 136 mg/dL (74-106)
[2024-04-02 04:33] LABS: Basophils % (manual) 0 (0.0-2.0); Blast Cells 0; Eosinophils % (manual) 0 (0-7); Metamyelocytes % 0; Myelocytes % 0; Promyelocytes % 0; Reactive Lymphocytes 0
[2024-04-02 04:36] LABS: Blood Urea Nitrogen 83 mg/dL (9-23)
[2024-04-02 05:04] LABS: Band Neutrophils % (manual) 4; Large Platelets FEW; Lymphocytes % (manual) 1 (10.0-50.0); Monocytes % (manual) 4 (0-12); Platelet Estimate Decrea
[2024-04-02] MEDS: ALBUMIN 25% 100 ML IV SCH ×2 (06:57→16:43)
[2024-04-02 07:15] LABS: Base Excess -8.4 mmol/L (-2.0-3.0)
[2024-04-02 12:20] LABS: INR 1.63 (0.9-1.15); Partial Thromboplastin Time 52.1 SEC (24.5-34.5); Prothrombin Time 16.7 sec (9.3-11.8)
[2024-04-02 12:22] LABS: Phosphorus 9.1 mg/dL (2.4-5.1)
[2024-04-02 12:28] LABS: Lactic Acid w/Reflex 2.9 mmol/L (0.4-2.0)
[2024-04-02 13:59] LABS: Amphetamine Screen, Urine Neg (NEGATIVE); Barbiturate Scree,Urine Neg (NEGATIVE); Benzodiazephine Screen, Urine Pos (NEGATIVE); Cocaine Screen, Urine Neg (NEGATIVE); Opiate Scree,Urine Neg (NEGATIVE); Phencyclidine Screen, Urine Neg (NEGATIVE)
[2024-04-02 14:00] LABS: Cannabinoid Screen, Urine Neg (NEGATIVE)
[2024-04-02 14:09] LABS: Creatinine, Urine 45.68 mg/dL (30.0-125.0)
[2024-04-02 16:31] LABS: Chloride 112 mmol/L (98-107); Potassium 5.2 mmol/L (3.5-5.1); Sodium 145 mmol/L (136-145)
[2024-04-02 16:32] LABS: Anion Gap 11 (5-15); Carbon Dioxide 22 mmol/L (20-31)
[2024-04-02 16:37] LABS: BUN/Creatinine Ratio 27.8 (10.0-20.0); Glucose 149 mg/dL (74-106)
[2024-04-02 16:53] LABS: Blood Urea Nitrogen 94 mg/dL (9-23)
[2024-04-02] MEDS: FUROSEMIDE INJECTION 100 MG in SODIUM CHL 0.9% 100 ML IV SCH (17:49)
[2024-04-02 21:12] LABS: Base Excess -6.2 mmol/L (-2.0-3.0)
[2024-04-02 21:14] LABS: Chloride 111 mmol/L (98-107); Sodium 144 mmol/L (136-145)
[2024-04-02 21:15] LABS: Anion Gap 13 (5-15); Calcium 8.9 mg/dL (8.7-10.4); Carbon Dioxide 20 mmol/L (20-31)
[2024-04-02 21:20] LABS: BUN/Creatinine Ratio 29.2 (10.0-20.0); Glucose 149 mg/dL (74-106)
[2024-04-02 21:25] LABS: Blood Urea Nitrogen 95 mg/dL (9-23)
[2024-04-03] VITALS (108 sets, daily range): BP systolic 90–152; BP diastolic 21–82; PULSE 76–121; RESP 20–30; TEMP 97.2–99.7; O2SAT 90–99
[2024-04-03 05:00] LABS: Hematocrit 24.6 % (41.0-53.0); Red Blood Cells 2.57 10^6/uL (4.5-5.90)
[2024-04-03 05:02] LABS: Hemoglobin 8.3 g/dL (13.5-17.5); Mean Corpuscular Hemoglobin 32.1 pg (28.0-32.0); Mean Corpuscular Hgb Conc. 33.6 g/dL (32.0-36.0); Mean Corpuscular Volume 95.5 fL (80.0-100.0); Platelet Count (auto) 87 10^3/uL (140-450); Red Cell Distribution Width 17.3 % (11.8-14.3)
[2024-04-03 05:06] LABS: Chloride 111 mmol/L (98-107); Potassium 4.5 mmol/L (3.5-5.1); Sodium 144 mmol/L (136-145)
[2024-04-03 05:07] LABS: Anion Gap 13 (5-15); Carbon Dioxide 20 mmol/L (20-31)
[2024-04-03 05:08] LABS: Calcium 8.8 mg/dL (8.7-10.4)
[2024-04-03 05:12] LABS: Glucose 138 mg/dL (74-106)
[2024-04-03 05:13] LABS: BUN/Creatinine Ratio 29.1 (10.0-20.0)
[2024-04-03 05:27] LABS: Basophils % (manual) 0 (0.0-2.0); Blast Cells 0; Eosinophils % (manual) 0 (0-7); Metamyelocytes % 0; Myelocytes % 0; Promyelocytes % 0; Reactive Lymphocytes 0
[2024-04-03 05:37] LABS: Blood Urea Nitrogen 97 mg/dL (9-23)
[2024-04-03 06:47] LABS: Base Excess -5.1 mmol/L (-2.0-3.0)
[2024-04-03 07:30] LABS: Band Neutrophils % (manual) 5; Lymphocytes % (manual) 2 (10.0-50.0)
[2024-04-03 07:31] LABS: Monocytes % (manual) 1 (0-12)
[2024-04-03 07:32] LABS: Anisocytosis Slight; Ovalocytes FEW; Platelet Estimate Decreased
[2024-04-03 07:51] LABS: Basophils # (auto) 0.1 10 ^3/uL (0-0.2); Basophils % (auto) 0.8 % (0.0-2.0); Eosinophils # (auto) 0 10 ^3/uL (0-0.8); Eosinophils % (auto) 0.1 % (0.0-7.0); Hematocrit 26.4 % (41.0-53.0); Hemoglobin 8.6 g/dL (13.5-17.5); Lymphocytes # (auto) 0.1 10 ^3/uL (0.4-5.4); Lymphocytes % (auto) 1.2 % (10.0-50.0); Mean Corpuscular Hemoglobin 32.1 pg (28.0-32.0); Mean Corpuscular Hgb Conc. 32.7 g/dL (32.0-36.0); Mean Corpuscular Volume 98.1 fL (80.0-100.0); Monocytes # (auto) 0.1 10 ^3/uL (0-1.3); Monocytes % (auto) 0.7 % (0.0-12.0); Neutrophils # (auto) 7.1 10 ^3/uL (1.6-8.6); Neutrophils % (auto) 97.2 % (37.0-80.0); Nucleated Red Blood Cells % 0.2 %; Platelet Count (auto) 91 10^3/uL (140-450); Red Blood Cells 2.69 10^6/uL (4.5-5.90); White Blood Cell 7.2 10^3/uL (4.4-10.8)
[2024-04-03 07:54] LABS: Anion Gap 15 (5-15); Carbon Dioxide 19 mmol/L (20-31); Chloride 111 mmol/L (98-107); Potassium 4.5 mmol/L (3.5-5.1); Sodium 145 mmol/L (136-145)
[2024-04-03 07:56] LABS: Calcium 9.1 mg/dL (8.7-10.4)
[2024-04-03 08:00] LABS: BUN/Creatinine Ratio 26.8 (10.0-20.0); Glucose 143 mg/dL (74-106)
[2024-04-03 08:16] LABS: Blood Urea Nitrogen 88 mg/dL (9-23)
[2024-04-03 08:27] LABS: INR 1.7 (0.9-1.15); Partial Thromboplastin Time 43.9 SEC (24.5-34.5); Prothrombin Time 17.3 sec (9.3-11.8)
[2024-04-03 09:16] LABS: Chloride 111 mmol/L (98-107); Potassium 4.6 mmol/L (3.5-5.1); Sodium 145 mmol/L (136-145)
[2024-04-03 09:17] LABS: Anion Gap 12 (5-15); Carbon Dioxide 22 mmol/L (20-31)
[2024-04-03 09:18] LABS: Calcium 9.1 mg/dL (8.7-10.4)
[2024-04-03 09:22] LABS: BUN/Creatinine Ratio 31.1 (10.0-20.0); Glucose 142 mg/dL (74-106)
[2024-04-03 09:27] LABS: Blood Urea Nitrogen 103 mg/dL (9-23)
[2024-04-03] MEDS: HEPARIN SODIUM (PORCINE) 5000 UNITS/ML 1ML VIAL IV ONE (11:51)
[2024-04-03] MEDS: HEPARIN 1,000 UNITS/ml 1ML VIAL IV ONE (11:52)
[2024-04-03] MEDS: METOCLOPRAMIDE HCL 5MG/ml INJ 2ml VIAL IV SCH (14:00)
[2024-04-03 15:13] LABS: INR 1.73 (0.9-1.15); Partial Thromboplastin Time 47.1 SEC (24.5-34.5); Prothrombin Time 17.6 sec (9.3-11.8)
[2024-04-03] MEDS: FUROSEMIDE 100 MG/10ML VIAL IV ONE (21:45)
[2024-04-04] VITALS (111 sets, daily range): BP systolic 99–162; BP diastolic 23–59; PULSE 86–121; RESP 12–34; TEMP 97.7–99.3; O2SAT 93–100
[2024-04-04 05:20] LABS: Hemoglobin 8.3 g/dL (13.5-17.5); Red Cell Distribution Width 17.4 % (11.8-14.3)
[2024-04-04 05:21] LABS: Chloride 109 mmol/L (98-107); Potassium 4.5 mmol/L (3.5-5.1); Sodium 145 mmol/L (136-145)
[2024-04-04 05:22] LABS: Anion Gap 13 (5-15); Carbon Dioxide 23 mmol/L (20-31)
[2024-04-04 05:23] LABS: Calcium 9.2 mg/dL (8.7-10.4)
[2024-04-04 05:27] LABS: BUN/Creatinine Ratio 27.9 (10.0-20.0); Glucose 119 mg/dL (74-106)
[2024-04-04 05:47] LABS: Hematocrit 24.9 % (41.0-53.0); Mean Corpuscular Hemoglobin 31.8 pg (28.0-32.0); Mean Corpuscular Hgb Conc. 33.3 g/dL (32.0-36.0); Mean Corpuscular Volume 95.5 fL (80.0-100.0); Platelet Count (auto) 47 10^3/uL (140-450); Red Blood Cells 2.61 10^6/uL (4.5-5.90); White Blood Cell 8.7 10^3/uL (4.4-10.8)
[2024-04-04 05:48] LABS: Basophils % (manual) 0 (0.0-2.0); Blast Cells 0; Eosinophils % (manual) 0 (0-7); Metamyelocytes % 0; Myelocytes % 0; Promyelocytes % 0; Reactive Lymphocytes 0
[2024-04-04 05:54] LABS: Blood Urea Nitrogen 83 mg/dL (9-23)
[2024-04-04 06:02] LABS: Base Excess -4.4 mmol/L (-2.0-3.0)
[2024-04-04 08:31] LABS: Band Neutrophils % (manual) 2; Lymphocytes % (manual) 2 (10.0-50.0); Monocytes % (manual) 1 (0-12); Platelet Estimate Decreased
[2024-04-04] MEDS: POLYETHYLENE GLYCOL 17 GM PWDR PO SCH (09:49)
[2024-04-04] MEDS: EPOETIN ALFA-EPBX 10,000 UNIT/1ML VIAL IV ONE (20:37)
[2024-04-04] MEDS: LACTULOSE 20Gm/30ML SOLN GT SCH (21:36)
[2024-04-05] VITALS (112 sets, daily range): BP systolic 59–158; BP diastolic 14–55; PULSE 88–160; RESP 25–31; TEMP 97.3–100.4; O2SAT 89–100
[2024-04-05 05:12] LABS: Hematocrit 26.6 % (41.0-53.0); Hemoglobin 9.2 g/dL (13.5-17.5); Mean Corpuscular Hgb Conc. 34.7 g/dL (32.0-36.0); Platelet Count (auto) 34 10^3/uL (140-450); Red Cell Distribution Width 17.4 % (11.8-14.3); White Blood Cell 10.6 10^3/uL (4.4-10.8)
[2024-04-05 05:20] LABS: Anion Gap 13 (5-15); Carbon Dioxide 24 mmol/L (20-31); Chloride 106 mmol/L (98-107); Potassium 3.8 mmol/L (3.5-5.1); Sodium 143 mmol/L (136-145)
[2024-04-05 05:22] LABS: Basophils % (manual) 0 (0.0-2.0); Blast Cells 0; Calcium 9.5 mg/dL (8.7-10.4); Eosinophils % (manual) 0 (0-7); INR 1.44 (0.9-1.15); Myelocytes % 0; Partial Thromboplastin Time 37.9 SEC (24.5-34.5); Promyelocytes % 0; Prothrombin Time 14.9 sec (9.3-11.8); Reactive Lymphocytes 0
[2024-04-05 05:26] LABS: Glucose 154 mg/dL (74-106)
[2024-04-05 05:27] LABS: Blood Urea Nitrogen 63 mg/dL (9-23)
[2024-04-05 06:47] LABS: Band Neutrophils % (manual) 3; Metamyelocytes % 3; Monocytes % (manual) 2 (0-12); Platelet Estimate Decreased
[2024-04-05 06:48] LABS: Lymphocytes % (manual) 2 (10.0-50.0)
[2024-04-05 08:02] LABS: Base Excess -2.1 mmol/L (-2.0-3.0)
[2024-04-05] MEDS: NOREPINEPHRINE 8 MG/250ML KIT 250 ML IV ONE (12:42)
[2024-04-05] MEDS ORDERED: BACTRIM 5MG/KG Q8HR PER RX 10 ML IV SCH (15:15)
[2024-04-05] MEDS: IPRATROPIUM BROM 0.5 MG/2.5ML INH SOL NEB PRN (15:35)
[2024-04-05] MEDS: VASOPRESSIN 20 UNIT/ML ONE (22:00)
[2024-04-06] VITALS (87 sets, daily range): BP systolic 64–137; BP diastolic 10–36; PULSE 91–151; RESP 18–33; TEMP 92.5–101.7; O2SAT 91–99
[2024-04-06] MEDS: AMIODARONE HCL (50 MG/ ML) 3 ML VIAL IV ONE (00:04)
[2024-04-06] MEDS: AMIODARONE 450mg/250ml AE 250 ML IV ONE (00:15)
[2024-04-06] MEDS: AMIODARONE BOLUS KIT 100 ML IV ONE (00:25)
[2024-04-06] MEDS: AMIODARONE 450mg/250ml AE 250 ML IV SCH ×2 (00:25→06:20)
[2024-04-06] MEDS: SULFAMETH-TRIMETH 80/16MG-ML 20 ML in D5W 5% 500 ML IV SCH (00:41)
[2024-04-06 04:56] LABS: Hemoglobin 9.4 g/dL (13.5-17.5); Mean Corpuscular Hemoglobin 31.3 pg (28.0-32.0); Mean Corpuscular Hgb Conc. 32.4 g/dL (32.0-36.0); Mean Corpuscular Volume 96.6 fL (80.0-100.0); Platelet Count (auto) 54 10^3/uL (140-450); Red Cell Distribution Width 18.4 % (11.8-14.3); White Blood Cell 8.2 10^3/uL (4.4-10.8)
[2024-04-06 04:59] LABS: Basophils % (manual) 0 (0.0-2.0); Blast Cells 0; Eosinophils % (manual) 0 (0-7); Metamyelocytes % 0; Promyelocytes % 0; Reactive Lymphocytes 0
[2024-04-06 05:38] LABS: Alanine Aminotransferase 12 U/L (7-40); Albumin 2.9 g/dL (3.2-4.8); Alkaline Phosphatase 83 U/L (46-116); Anion Gap 15 (5-15); Aspartate Aminotransferase 23 U/L (13-40); BUN/Creatinine Ratio 23.5 (10.0-20.0); Bilirubin, Total 0.6 mg/dL (0.2-1.0); Calcium 9.3 mg/dL (8.7-10.4); Carbon Dioxide 22 mmol/L (20-31); Chloride 106 mmol/L (98-107); Glucose 184 mg/dL (74-106); Potassium 4.2 mmol/L (3.5-5.1); Sodium 143 mmol/L (136-145); Total Protein 5.2 g/dL (5.7-8.2)
[2024-04-06 06:10] LABS: Blood Urea Nitrogen 73 mg/dL (9-23)
[2024-04-06 06:55] LABS: Band Neutrophils % (manual) 8; Lymphocytes % (manual) 2 (10.0-50.0); Monocytes % (manual) 1 (0-12); Myelocytes % 2
[2024-04-06 06:56] LABS: Large Platelets FEW; Platelet Estimate Decreased
[2024-04-06] MEDS: SODIUM CHL 0.9% 1000 ML BAG XX ONE (07:00)
[2024-04-06 07:06] LABS: Base Excess -6.2 mmol/L (-2.0-3.0)
[2024-04-06] MEDS: PHENYLEPHRINE IV 250 ML IV SCH (08:00)
[2024-04-06] MEDS: NOREPINEPHRINE 8 MG/250ML KIT 250 ML IV SCH (08:30)
[2024-04-06] MEDS: PHENYLEPHRINE IV 250 ML IV ONE (08:47)
[2024-04-06 08:59] LABS: INR 1.45 (0.9-1.15)
[2024-04-06] MEDS: SODIUM BICARB 8.4% 50Meq/50ml SYR Vial IV ONE (09:06)
[2024-04-06] MEDS: DOPamine 1600MCG/ML D5W 250 ML IV SCH (10:00)
[2024-04-06] MEDS: EPINEPHrine HCL 250 ML IV SCH (10:00)
[2024-04-06] MEDS: EPINEPHrine HCL 250 ML IV ONE (10:07)
[2024-04-06] MEDS: NOREPINEPHRINE BITARTRATE 32 MG in SODIUM CHL 0.9% 218 ML IV SCH (15:27)
[2024-04-06] MEDS: PHENYLEPHRINE INJ 80 MG in SODIUM CHL 0.9% 242 ML IV SCH (15:28)
[2024-04-06] MEDS: LORazepam 2MG/ML-1ML VIAL IV PRN (18:40)
[2024-04-06] MEDS: MORPHINE SULFATE INJ 2 MG/ml SYRG IV PRN (18:42)
[2024-04-06] MEDS ORDERED: EPOETIN ALFA-EPBX 10,000 UNIT/1ML VIAL SC ONE (21:00)
== END 2024-04-06 20:21 | DRG 870 ==
LOC: ER 04:31 → EDBD 04:31 → ER 11:01 → TELE 11:01 → ICU WEST 18:18 → DOU IN ICU 03-23 20:45 → ICU CENTRL 03-25 21:46
PROVIDERS: ADMIT Internal Medicine; ATTEND Internal Medicine
PROC: 5A09357 Assistance with Respiratory Ventilation, Less than 24 Consecutive Hours, Continuous Positive Airway Pressure (ICD-10-PCS; 2024-03-20)
PROC: 5A1955Z Respiratory Ventilation, Greater than 96 Consecutive Hours (ICD-10-PCS; principal; 2024-03-25)
PROC: 05HC33Z Insertion of Infusion Device into Left Basilic Vein, Percutaneous Approach (ICD-10-PCS; 2024-03-25)
PROC: B54NZZA Ultrasonography of Left Upper Extremity Veins, Guidance (ICD-10-PCS; 2024-03-25)
PROC: 0BH17EZ Insertion of Endotracheal Airway into Trachea, Via Natural or Artificial Opening (ICD-10-PCS; 2024-03-26)
PROC: 0B9D8ZX Drainage of Right Middle Lung Lobe, Via Natural or Artificial Opening Endoscopic, Diagnostic (ICD-10-PCS; 2024-03-26)
PROC: 06HY33Z Insertion of Infusion Device into Lower Vein, Percutaneous Approach (ICD-10-PCS; 2024-03-26)
PROC: 04HY32Z Insertion of Monitoring Device into Lower Artery, Percutaneous Approach (ICD-10-PCS; 2024-03-26)
PROC: 02HV33Z Insertion of Infusion Device into Superior Vena Cava, Percutaneous Approach (ICD-10-PCS; 2024-04-03)
PROC: 5A1D70Z Performance of Urinary Filtration, Intermittent, Less than 6 Hours Per Day (ICD-10-PCS; 2024-04-03)
PROC: 5A1D70Z Performance of Urinary Filtration, Intermittent, Less than 6 Hours Per Day (ICD-10-PCS; 2024-04-04)
PROC: 30233R1 Transfusion of Nonautologous Platelets into Peripheral Vein, Percutaneous Approach (ICD-10-PCS; 2024-04-05)
PROC: 5A1D70Z Performance of Urinary Filtration, Intermittent, Less than 6 Hours Per Day (ICD-10-PCS; 2024-04-06)
DX: A41.59 Other Gram-negative sepsis (principal); J15.69 Pneumonia due to other Gram-negative bacteria; R65.21 Severe sepsis with septic shock; I50.33 Acute on chronic diastolic (congestive) heart failure; N17.0 Acute kidney failure with tubular necrosis; K66.1 Hemoperitoneum; K63.1 Perforation of intestine (nontraumatic); J69.0 Pneumonitis due to inhalation of food and vomit; J96.01 Acute respiratory failure with hypoxia; J44.1 Chronic obstructive pulmonary disease with (acute) exacerbation; J44.0 Chronic obstructive pulmonary disease with (acute) lower respiratory infection; J98.11 Atelectasis; E87.0 Hyperosmolality and hypernatremia; B49 Unspecified mycosis; E87.4 Mixed disorder of acid-base balance; D68.59 Other primary thrombophilia; I13.0 Hypertensive heart and chronic kidney disease with heart failure and stage 1 through stage 4 chronic kidney disease, or unspecified chronic kidney disease; I47.19 Other supraventricular tachycardia; Z99.11 Dependence on respirator [ventilator] status; K55.9 Vascular disorder of intestine, unspecified; G93.1 Anoxic brain damage, not elsewhere classified; Z20.822 Contact with and (suspected) exposure to COVID-19; E78.5 Hyperlipidemia, unspecified; D64.9 Anemia, unspecified; I48.0 Paroxysmal atrial fibrillation; T36.8X5A Adverse effect of other systemic antibiotics, initial encounter; E88.09 Other disorders of plasma-protein metabolism, not elsewhere classified; K59.00 Constipation, unspecified; N18.9 Chronic kidney disease, unspecified; D69.6 Thrombocytopenia, unspecified; Z66 Do not resuscitate; R74.01 Elevation of levels of liver transaminase levels; Z93.1 Gastrostomy status; E11.22 Type 2 diabetes mellitus with diabetic chronic kidney disease; Z85.828 Personal history of other malignant neoplasm of skin; Z79.4 Long term (current) use of insulin; Z80.42 Family history of malignant neoplasm of prostate; Z83.3 Family history of diabetes mellitus; Z81.8 Family history of other mental and behavioral disorders; Z92.3 Personal history of irradiation; Z85.01 Personal history of malignant neoplasm of esophagus
CPT/HCPCS: 36415; 36600; 70450; 71045; 71250; 71275; 74018; 74176; 76775; 80048; 80053; 80061; 80069; 80202; 80307; 81001; 82306; 82570; 82607; 82805; 82962; 83036; 83605; 83735; 83880; 83970; 84100; 84156; 84300; 84443; 84484; 85007; 85025; 85027; 85610; 85730; 86606; 86850; 86900; 86901; 87040; 87070; 87077; 87081; 87086; 87186; 87205; 87340; 87426; 87804; 90935; 93005; 93306; 94002; 94003; 94640; 94660; 96365; 96366; 96368; 96375; 97163; 99291; G0378; J0171; J0330; J1450; J1815; J1956; J2185; J2248; J2470; J2543; J2704; J3465; J3480; J3490; J7060; P9047